=== PATIENT | female | born 1975 | race Caucasian/White ===

== ENCOUNTER 2020-01-25 11:04 | Emergency (ER) | payer OTHER ==
[~2020-01-25] VITALS: Ht 167.6 cm; Wt 62.8 kg
[2020-01-25 11:18] VITALS: Ht 167.6 cm; Wt 62.8 kg
[2020-01-25 13:08] VITALS: BP 116/62
== END 2020-01-25 13:09 | disposition home or self-care (01) ==
LOC: ED 11:04
DX: S49.91XA Unspecified injury of right shoulder and upper arm, initial encounter (principal); S59.911A Unspecified injury of right forearm, initial encounter; X58.XXXA Exposure to other specified factors, initial encounter; Y93.89 Activity, other specified; Y92.89 Other specified places as the place of occurrence of the external cause; Y99.8 Other external cause status